=== PATIENT | male | born 1975 | race American Indian/Alaskan Native ===

== ENCOUNTER 2021-11-25 03:50 | Emergency (ER) | payer SELFPAY ==
--- NOTE | 2021-11-25 04:04 | Emergency Department Report ---
ED CPR HPI - General Chief Complaint: Cardiac Arrest/CPR Stated Complaint: CARDIAC ARREST Time Seen by Provider: 11/25/21 04:02 Source: EMS (Verbal report received from emergency medical services. EMS documentation not available at time of chart dictation ), RN notes reviewed Mode of arrival: Stretcher Limitations: Altered Mental Status, Physical Limitation - History of Present Illness Initial Comments: The patient was evaluated in the emergency department for symptoms described in the history of present illness. He/she was evaluated in the context of the global COVID-19 pandemic, which necessitated consideration that the patient might be at risk for infection with the virus that causes COVID-19. Institutional protocols and algorithms that pertain to the evaluation of patients at risk for COVID-19 are in a state of rapid change based on information released by regulatory bodies including the CDC and federal and state organizations. These policies and algorithms were followed during the patient's care in the emergency department. Please note that these policies, procedures and recommendations changed on a rapid basis. This is a 45-year-old who was brought to the hospital by EMS with an EMS articulated complaint of out of hospital cardiac arrest. Patient arrives receiving CPR, he is pulseless, with a GCS of 3, and no pulses. He is in asystole. History entirely obtained from EMS. Patient reportedly inmate at a local retirement facility, and was found collapsed or down for uncertain mechanism and for uncertain duration of time. It is unclear if CPR is initiated at the retirement. EMS believes that CPR may have been initiated, but they are not certain. They report that upon their arrival, the patient has a GCS of 3, is not breathing, and does not have a shockable rhythm. EMS places a supraglottic airway, starts high-quality CPR, patient received 3 rounds of epinephrine, and 1 round of sodium bicarbonate. EMS informs me that the patient has been pulseless for an hour. Upon arrival to the emergency room, the left pupil is dilated, skin is mottled, patient is pulseless, and does not have a shockable rhythm, and he is found to be in asystole on the monitor. There is also copious emesis in the mouth, and the patient has defecated on himself. Given obvious signs of and medical futility, resuscitation efforts are terminated. Complaint: found unresponsive Place: other Initial Findings in the Field: no pulse Treatments Prior to Arrival: other airway device, chest compressions, epinephrine mgs #, sodium bicarbonate ED Review of Systems ROS: Stated complaint: CARDIAC ARREST Other details as noted in HPI Comment: Unobtainable due to pts medical conditions ED Physical Exam - General Limitations: Altered Mental Status General appearance: obtunded - Head Head exam: Present: atraumatic, normocephalic - Eye Eye exam: Present: other (Left pupil is dilated.). Absent: normal appearance - ENT ENT exam: Present: normal exam, normal external ear exam, other (Emesis noted in the mouth. Airway noted in the mouth) - Neck Neck exam: Present: normal inspection - Respiratory Respiratory exam: Absent: normal lung sounds bilaterally (The patient does not breathe) - Cardiovascular Cardiovascular Exam: Present: other (Patient is pulseless) - Rectal Rectal exam: Present: deferred - Extremities Exam Extremities exam: Present: normal inspection - Back Exam Back exam: Present: normal inspection - Neurological Exam Neurological exam: Present: altered (GCS of 3, nonverbal) - Psychiatric Psychiatric exam: Present: other (The patient is nonverbal) - Skin Skin exam: Present: warm, dry ED Medical Decision Making - Medical Decision Making Differential diagnosis, including but not limited to: Stroke, acute myocardial infarction, pulmonary embolism, nonaccidental trauma Critical care attestation.: If time is entered above; I have spent that time in minutes in the direct care of this critically ill patient, excluding procedure time. ED Disposition Clinical Impression: Cardiac arrest Disposition: 20 Is pt being admited?: No Does the pt Need Aspirin: No Condition: Undetermined
== END 2021-11-25 08:32 ==
LOC: ED 03:50
DX: I46.9 Cardiac arrest, cause unspecified (principal)
CPT/HCPCS: 92950; 99285